=== PATIENT | female | born 1975 | race Caucasian/White ===

== ENCOUNTER 2020-11-15 12:48 | Observation (INO) ==
[2020-11-15 14:12] LABS: ABS Eosinophils 0.5 10^3/ul (0-0.6); ABS Lymphocytes 1.3 10^3/ul (1.0-4.8); ABS Monocytes 0.5 10^3/ul (0-0.8); ABS Neutrophils 6.5 10^3/ul (1.5-7.7); Eosinophil % 5.6 %; Hematocrit 41 % (35-47); Hemoglobin 13.7 g/dL (12.0-16.0); Lymphocyte % 14.4 %; Mean Corpuscular HGB Conc 34 g/dL (31-36); Mean Corpuscular Hemoglobin 31 pg (27-31); Mean Corpuscular Volume 91 fL (80-97); Mean Platelet Volume 7.4 fL (7.4-10.4); Platelet Count 286 10^3/uL (150-450); Red Blood Count 4.46 10^6 /uL (3.70-4.87); Red Cell Distribution Width 12 % (10-15); White Blood Count 8.8 10^3/uL (3.5-10.8)
[2020-11-15 14:31] LABS: Albumin/Globulin Ratio 1.2 (1-3); BUN/Creatinine Ratio 16.9 (8-20); Calcium 9.3 mg/dL (8.6-10.3); EGFR African American 120.4 (>60); EGFR Non-African American 99.5 (>60); Globulin 3.3 g/dL (2-4); Potassium 4.1 mmol/L (3.5-5.0); Total Bilirubin 0.8 mg/dL (0.2-1.0); Total Protein 7.3 g/dL (6.4-8.9); Troponin I 0.01 ng/mL (<0.03)
[2020-11-15] MEDS ORDERED: Albuterol HFA INHALER 8 gm MDI INH ONE (14:50)
[2020-11-15] MEDS ORDERED: Iohexol 300 (CONTRAST) 10 ML SDV IV ONE (15:47)
[2020-11-15] MEDS ORDERED: Albuterol HFA INHALER 8 gm MDI INH PRN (18:12)
[2020-11-15] MEDS ORDERED: Enoxaparin 40 MG/0.4 ML SYR SUBCUT SCH (21:00)
[2020-11-15] MEDS: Nicotine PATCH 7 MG/24 HR PATCH TRANSDERM SCH (22:26)
[2020-11-16] MEDS ORDERED: Methadone ORALSYR CONC LIQ 10 MG/ML PO SCH (09:00)
[2020-11-16] MEDS: Nicotine PATCH 7 MG/24 HR PATCH TRANSDERM SCH (09:36)
[2020-11-16 11:06] LABS: ABS Basophils 0.1 10^3/ul (0-0.2); ABS Eosinophils 0.1 10^3/ul (0-0.6); ABS Lymphocytes 1.8 10^3/ul (1.0-4.8); ABS Monocytes 0.6 10^3/ul (0-0.8); ABS Neutrophils 6.2 10^3/ul (1.5-7.7); Eosinophil % 0.7 %; Hematocrit 41 % (35-47); Hemoglobin 13.4 g/dL (12.0-16.0); Lymphocyte % 20.8 %; Mean Corpuscular HGB Conc 33 g/dL (31-36); Mean Corpuscular Hemoglobin 30 pg (27-31); Mean Corpuscular Volume 90 fL (80-97); Mean Platelet Volume 7.3 fL (7.4-10.4); Platelet Count 326 10^3/uL (150-450); Red Cell Distribution Width 12 % (10-15); White Blood Count 8.7 10^3/uL (3.5-10.8)
[2020-11-16] MEDS ORDERED: Nicotine GUM 4MG FRUIT FLAVOR PO PRN (11:24)
[2020-11-16 11:30] LABS: Calcium 9.4 mg/dL (8.6-10.3); EGFR African American 137.3 (>60); EGFR Non-African American 113.5 (>60); Potassium 3.6 mmol/L (3.5-5.0)
[2020-11-16] MEDS ORDERED: Nicotine PATCH 21 MG/24 HR PATCH TRANSDERM SCH (12:00)
[2020-11-16 12:03] VITALS: BP 138/77
== END 2020-11-16 13:00 | disposition left against medical advice (07) ==
LOC: ED 13:06 → MED 13:06
PROVIDERS: ADMIT Internal Medicine; ATTEND Internal Medicine